=== PATIENT | male | born 1965 | race Caucasian/White ===

== ENCOUNTER 2016-05-07 23:53 | Inpatient (IN) | payer OTHER ==
--- NOTE | 2016-05-08 00:01 | CPEKG ---
Heart Rate: 143 RR Interval: 420 QRSD Interval: 122 QT Interval: 376 QTC Interval: 580 P [place]: 0 QRS [place]: 34 T Wave [place]: 21 EKG Severity - ABNORMAL ECG - EKG Impression: SINUS TACHYCARDIA EKG Impression: LEFT BUNDLE BRANCH BLOCK Electronically Signed By: Mello Phan 08-May-2016 08:26:37
[2016-05-08] MEDS ORDERED: IPRATROPIUM/ALBUTEROL 3 ML DEYVIAL IH ONE (00:11)
[2016-05-08] MEDS ORDERED: IPRATROPIUM/ALBUTEROL 3 ML DEYVIAL ONE (00:12)
--- NOTE | 2016-05-08 00:15 | EDPHY ---
H & P Stated Complaint: Difficulty Breathing Time Seen by Provider: 05/07/16 23:59 HPI/ROS: HPI The patient presents with shortness of breath which began a few hours ago while he was at work at the movie [employer]. He said he was exerting himself somewhat when he developed shortness of breath. It came on slowly but became worse after about 30 minutes. He has had a mild cough over the last days which is intermittent. He brought himself in. He has not had a fever or chills. He denies any lower extremity edema. In February he was diagnosed with iron deficiency anemia and is supposed to be on iron, though says he is not taking it. REVIEW OF SYSTEMS Constitutional: No fever, no chills. Eyes: No discharge. ENT: No sore throat. Cardiovascular: See HPI Respiratory: See HPI Gastrointestinal: No abdominal pain, no vomiting. Genitourinary: No hematuria. Musculoskeletal: No back pain. Skin: No rashes. Neurological: No headache. 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 PHYSICAL General Appearance: Alert, in acute respiratory distress Eyes: Pupils equal and round no pallor or injection ENT, Mouth: Mucous membranes moist Respiratory: Tachypneic with coarse breath sounds throughout Cardiovascular: Tachycardic with regular rate Gastrointestinal: Abdomen is soft and non-tender, no masses, bowel sounds normal Neurological: Paraplegic Skin: Warm and dry, no rashes Musculoskeletal: Neck is supple non tender Extremities: Atrophy of both lower extremities, Right lower extremity is cool, left lower extremity is warm Psychiatric: Patient is oriented X 3, there is no agitation Source: Patient Exam Limitations: No limitations, Clinical condition - Personal History Current Tetanus/Diphtheria Vaccine: Unsure Current Tetanus Diphtheria and Acellular Pertussis (TDAP): Unsure Tetanus Vaccine Date: UNSURE OF DATE THINKS IT WAS IN PAST TWO YEARS - Medical/Surgical History Hx Asthma: No Hx Chronic Respiratory Disease: No Hx Diabetes: No Hx Cardiac Disease: No Hx Renal Disease: No Hx Cirrhosis: No Hx Alcoholism: No Hx HIV/AIDS: No Hx Splenectomy or Spleen Trauma: No Other PMH: aorta repair; T12 spinal cord injury w/ paralasys; hernia repair; exploritory sx on R foot; kidney infection - Social History Smoking Status: Never smoked Constitutional: Initial Vital Signs Temperature (C) 37.7 C 05/07/16 23:56 Heart Rate 152 H 05/07/16 23:56 Respiratory Rate 14 05/07/16 23:56 Blood Pressure 134/92 H 05/07/16 23:56 O2 Sat (%) 89 L 05/07/16 23:56 O2 Delivery Mode Ventilator O2 (L/minute) 35 Allergies/Adverse Reactions: No Known Allergies Allergy (Unverified 08/01/10 15:23) Home Medications: Medication Instructions Recorded No Medications [No Meds] 1 ea [facility] [place] 08/01/10 Medical Decision Making - Diagnostics EKG Interpretation: EKG: Complete interpretation has been separately recorded in the [facility] archive. Summary impression: Left bundle branch block with tachycardia Imaging: Chest x-ray #1: Mild cardiomegaly with bilateral fluffy infiltrates, interpreted by me, radiology interpretation is pending. CT scan of chest abdomen and pelvis with IV contrast demonstrates stable ascending thoracic aortic aneurysm without dissection, aortic valve calcifications, extensive bilateral infiltrates with some intraluminal fluid in the esophagus, gastric distention with fluid, discussed with Dr. Liriano of Radiology. Chest x-ray #2: Interval placement of ET tube approximately 4 cm above the ted, interpreted by me, radiology interpretation is pending. Chest x-ray #3: Interval placement of right central line which appears to be in the distal SVC, interpreted by me, radiology interpretation is pending. Procedures: INTUBATION Procedure: Rapid sequence intubation. Indication for the procedure was respiratory failure. The patient was preoxygenated with 100% oxygen by face mask and high-flow nasal cannula. The patient was given the following IV medications: Etomidate, . The patient was orally endotracheally intubated using the glide scope with a 7.5 ETT. In line stabilization was performed during the procedure. Tracheal intubation was confirmed with misting on the tube; breath sounds were auscultated equally bilaterally; appropriate color change with [place] [employer]idal CO2 detector. Chest X-ray shows ETT 4 cm above the ted, thus it was pulled back 1 cm. The procedure was performed by myself. CENTRAL LINE WITH US GUIDANCE Procedure: Ultrasound guidance. Using the linear probe covered in a sterile sheath, a short axis of the vein was obtained. The vein was completely compressible and was identified as separate from the adjacent non-compressible arterial structure. Under real- time guidance, the introducer needle was observed up to the vein, and then punctured it. Indication: Need for pressors Risks, benefits, alternatives discussed with the patient including but not limited to bleeding, infection, vascular injury, and collapsed lung and consent obtained. A timeout was observed. Full maximal sterile barrier technique was used including cap, gown, sterile gloves, large sheet, hand washing and chlorhexidine prep. The area was anesthetized with 1% lidocaine. A 7 [place] triple lumen was placed in the right,left internal jugular vein using standard Seldinger technique. There were no complications. Blood return low pressure, dark blood. Patient tolerated procedure well. CXR results: Appropriate line placement, and no pneumothorax. Xray was interpreted by myself. Radiologist interpretation is pending. The procedure was performed by myself. ED Course/Re-evaluation: 12:00 a.m.- Initial evaluation. On 2 L of oxygen his sats were not improving. I have placed him on a non-rebreather with improvement in his oxygen saturations, though he is still tachypneic. 1:00 a.m.- We are now doing high flow humidified O2 and the patient is still feels tachypneic. His sats are normal. His chest x-ray shows diffuse patchy infiltrates bilaterally. He is getting antibiotics and a fluid bolus. I will try a dose of ketamine and will transition to BiPAP if needed. It is unclear if he has pneumonia versus ARDS versus heart failure. 2:15 a.m.- The patient transitioned to BiPAP with Ativan and was still short of breath and anxious. Decision was made to intubate the patient. CT scan demonstrates bilateral infiltrates though no dissection, pulmonary embolism. Differential at this time includes aspiration pneumonia verses acute congestive heart failure. 2:45 a.m.- Plan to place a central line as patient's pressures are dropping after intubation. Propofol drip is being titrated and we are transitioning to fentanyl. I discussed the case with the hospitalist Dr. Bansal. She will consult Cardiology, Dr. Collier. Based on patient's story, it seems that he is suffering from heart failure with pulmonary edema. His blood pressures were never elevated, thus nitro was not indicated and given his hypotension now we will need to support his blood pressure. The patient will be transferred to the intensive care unit. Differential Diagnosis: This is a 50-year-old male paraplegic with history of coarctation of the aorta who presents with acute shortness of breath with very mild chest discomfort. On arrival, he is tachycardic, hypoxic, in respiratory distress. He has been sick recently with a mild intermittent cough. Differential diagnosis includes pulmonary embolism, pneumothorax, acute decompensated heart failure, pneumonia, aortic dissection Critical Care Time: CRITICAL CARE Critical care time spent by me, Dr. Paredes, exclusively with this patient was 90 minutes, exclusive of PA time and exclusive of procedures. The organ system at risk was respiratory, cardiac and I gave IV fluids, antibiotics, pressors, intubation and central line, emergent transfer to the intensive care unit to prevent worsening of the patients condition. - Data Points Laboratory Results: Laboratory Results 05/08/16 00:00 05/08/16 00:00 05/08/16 05/08/16 05/08/16 03:35 02:35 01:43 WBC RBC Hgb Hct MCV MCH MCHC RDW Plt Count MPV Neut % (Auto) Lymph % (Auto) Johnston % (Auto) Eos % (Auto) Baso % (Auto) Nucleat RBC Rel Count Absolute Neuts (auto) Absolute Lymphs (auto) Absolute Monos (auto) Absolute Eos (auto) Absolute Basos (auto) Absolute Nucleated RBC Immature Gran % Immature Gran # Toxic Granulation Platelet Estimate Large Platelets Giant Platelets Polychromasia Hypochromasia Microcytic Cells Smear Review By D-Dimer Puncture Site LEFT RADIAL Patient Temperature 37.0 DEGREES DEGREES pCO2 41 mmHg H mmHg (34-38) pO2 65 mmHg mmHg (65-75) Total CO2 20 mEq/L L mEq/L (23-27) ABG pH 7.28 L (7.35-7.45) ABG PO2/FiO2 Ratio 65 RATIO RATIO ABG O2 Saturation 88 % L % (92-95) ABG Base Excess -7.3 mEq/L L mEq/L (-2.5-2.5) ABG Lactic Acid 2.5 mmol/L H mmol/L (0.5-1.6) VBG Lactic Acid Total O2 Concentration 35.0 LITERS LITERS O2 Concentration % 100 % % (0-100) Sodium Potassium Chloride Carbon Dioxide Bicarbonate 19 mEq/L L mEq/L (22-26) Anion Gap BUN Creatinine Estimated GFR Glucose Calcium Troponin I NT-Pro-B Natriuret Pep Influenza A & B (PCR) NEGATIVE FOR FLU (NEGATIVE) 05/08/16 05/08/16 05/08/16 01:28 00:00 00:00 WBC RBC Hgb Hct MCV MCH MCHC RDW Plt Count MPV Neut % (Auto) Lymph % (Auto) Johnston % (Auto) Eos % (Auto) Baso % (Auto) Nucleat RBC Rel Count Absolute Neuts (auto) Absolute Lymphs (auto) Absolute Monos (auto) Absolute Eos (auto) Absolute Basos (auto) Absolute Nucleated RBC Immature Gran % Immature Gran # Toxic Granulation Platelet Estimate Large Platelets Giant Platelets Polychromasia Hypochromasia Microcytic Cells Smear Review By D-Dimer 1.16 ug/mLFEU H ug/mLFEU (0.00-0.50) Puncture Site Patient Temperature pCO2 pO2 Total CO2 ABG pH ABG PO2/FiO2 Ratio ABG O2 Saturation ABG Base Excess ABG Lactic Acid VBG Lactic Acid 2.8 mmol/L H mmol/L (0.7-2.1) Total O2 Concentration O2 Concentration % Sodium Potassium Chloride Carbon Dioxide Bicarbonate Anion Gap BUN Creatinine Estimated GFR Glucose Calcium Troponin I NT-Pro-B Natriuret Pep 1770 pg/mL H pg/mL (0-125) Influenza A & B (PCR) 05/08/16 05/08/16 05/08/16 00:00 00:00 00:00 WBC 27.93 10^3/uL H 10^3/uL (3.80-9.50) RBC 5.85 10^6/uL 10^6/uL (4.40-6.38) Hgb 10.6 g/dL L g/dL (13.7-17.5) Hct 38.6 % L % (40.0-51.0) MCV 66.0 fL L fL (81.5-99.8) MCH 18.1 pg L pg (27.9-34.1) MCHC 27.5 g/dL L g/dL (32.4-36.7) RDW 25.4 % H % (11.5-15.2) Plt Count 408 10^3/uL H 10^3/uL (150-400) MPV TNP Neut % (Auto) 90.8 % H % (39.3-74.2) Lymph % (Auto) 2.5 % L % (15.0-45.0) Johnston % (Auto) 5.4 % % (4.5-13.0) Eos % (Auto) 0.1 % L % (0.6-7.6) Baso % (Auto) 0.4 % % (0.3-1.7) Nucleat RBC Rel Count 0.1 % % (0.0-0.2) Absolute Neuts (auto) 25.35 10^3/uL H 10^3/uL (1.70-6.50) Absolute Lymphs (auto) 0.71 10^3/uL L 10^3/uL (1.00-3.00) Absolute Monos (auto) 1.50 10^3/uL H 10^3/uL (0.30-0.80) Absolute Eos (auto) 0.04 10^3/uL 10^3/uL (0.03-0.40) Absolute Basos (auto) 0.11 10^3/uL H 10^3/uL (0.02-0.10) Absolute Nucleated RBC 0.03 10^3/uL H 10^3/uL (0-0.01) Immature Gran % 0.8 % % (0.0-1.1) Immature Gran # 0.22 10^3/uL H 10^3/uL (0.00-0.10) Toxic Granulation PRESENT H Platelet Estimate INCREASED H (ADEQ) Large Platelets PRESENT H Giant Platelets PRESENT H Polychromasia 1+ H Hypochromasia 2+ H Microcytic Cells 2+ H Smear Review By Pending D-Dimer Puncture Site Patient Temperature pCO2 pO2 Total CO2 ABG pH ABG PO2/FiO2 Ratio ABG O2 Saturation ABG Base Excess ABG Lactic Acid VBG Lactic Acid 2.4 mmol/L H mmol/L (0.7-2.1) Total O2 Concentration O2 Concentration % Sodium 141 mEq/L mEq/L (134-144) Potassium 4.5 mEq/L mEq/L (3.5-5.2) Chloride 106 mEq/L mEq/L (97-110) Carbon Dioxide 19 mEq/l L mEq/l (22-31) Bicarbonate Anion Gap 16 mEq/L mEq/L (8-16) BUN 18 mg/dL mg/dL (7-23) Creatinine 0.7 mg/dL mg/dL (0.7-1.3) Estimated GFR > 60 Glucose 132 mg/dL H mg/dL (70-100) Calcium 9.6 mg/dL mg/dL (8.5-10.4) Troponin I 0.045 ng/mL H ng/mL (0-0.034) NT-Pro-B Natriuret Pep Influenza A & B (PCR) Medications Given: Discontinued Medications Albuterol/Ipratropium (Duoneb) 3 ml IH EDNOW ONE Stop: 05/08/16 00:12 Last Admin: 05/08/16 00:16 Dose: 3 ml Furosemide (Lasix Injection) 40 mg IVP ONCE ONE Stop: 05/08/16 03:16 Last Admin: 05/08/16 03:38 Dose: 40 mg Vancomycin/Sodium Chloride (Vancomycin 1 Gm (Premix)) 250 mls @ 250 mls/hr IV EDNOW ONE PRN Reason: Protocol Stop: 05/08/16 01:47 Last Admin: 05/08/16 01:45 Dose: 250 mls Sodium Chloride (Ns) 1,000 mls @ 0 mls/hr IV ONCE ONE PRN Reason: Wide Open Stop: 05/08/16 01:03 Last Admin: 05/08/16 00:30 Dose: 1,000 mls Clindamycin Phosphate/Dextrose (Cleocin 600 Mg (Premix)) 50 mls @ 100 mls/hr IV EDNOW ONE PRN Reason: Protocol Stop: 05/08/16 02:33 Last Admin: 05/08/16 04:41 Dose: 50 mls Norepinephrine 4 mg/ Dextrose 500 mls @ 0 mls/hr IV EDNOW ONE; Titrate PRN Reason: Protocol Stop: 05/08/16 03:01 Last Admin: 05/08/16 03:05 Dose: 500 mls Ketamine HCl (Ketamine) 15 mg IVP EDNOW ONE Stop: 05/08/16 01:00 Last Admin: 05/08/16 01:20 Dose: 15 mg Lorazepam (Ativan Injection) 0.5 mg IVP EDNOW ONE Stop: 05/08/16 01:56 Last Admin: 05/08/16 02:00 Dose: 0.5 mg Departure - Departure Disposition: [facility] Clinical Impression: Respiratory distress, Hypoxia, Tachycardia, Aorta coarctation Acute exacerbation of congestive heart failure Qualifiers: Congestive heart failure type: unspecified congestive heart failure type Qualified Code(s): I50.9 - Heart failure, unspecified Pulmonary edema Qualifiers: Chronicity: acute Qualified Code(s): J81.0 - Acute pulmonary edema Condition: Fair Referrals: Patient,NotPresent [Unknown] - As per Instructions
[2016-05-08 00:23] LABS: % IMMATURE GRANULYOCYTES 0.8 % (0.0-1.1); ABSOLUTE IMMATURE GRANULOCYTES 0.22 10^3/uL (0.00-0.10); ABSOLUTE NRBC COUNT 0.03 10^3/uL (0-0.01); ADD DIFF? NO; ADD MORPH? YES; ADD SCAN? NO; ATYPICAL LYMPHOCYTE FLAG 0 (0-99); FRAGMENT RBC FLAG 80 (0-99); HEMATOCRIT 38.6 % (40.0-51.0); HEMOGLOBIN 10.6 g/dL (13.7-17.5); LEFT SHIFT FLG 0 (0-99); LIPEMIA HEMOLYSIS FLAG 70 (0-99); MEAN CELL HEMOGLOBIN 18.1 pg (27.9-34.1); NRBC-AUTO% 0.1 % (0.0-0.2); PLATELET CLUMPS FLAG 10 (0-99); PLATELET COUNT 408 10^3/uL (150-400); RED BLOOD CELL COUNT 5.85 10^6/uL (4.40-6.38)
[2016-05-08 00:25] LABS: MEAN CELL HEMOGLOBIN CONCENTR. 27.5 g/dL (32.4-36.7); RED CELL DISTRIBUTION WIDTH 25.4 % (11.5-15.2)
[2016-05-08 00:30] LABS: ANION GAP 16 mEq/L (8-16); CALCIUM 9.6 mg/dL (8.5-10.4); CARBON DIOXIDE 19 mEq/l (22-31); CHLORIDE 106 mEq/L (97-110); CREATININE 0.7 mg/dL (0.7-1.3); GLOMERULAR FILTRATION RATE > 60; GLUCOSE 132 mg/dL (70-100); POTASSIUM 4.5 mEq/L (3.5-5.2); SODIUM 141 mEq/L (134-144)
[2016-05-08 00:41] LABS: TROPONIN I 0.045 ng/mL (0-0.034)
[2016-05-08] MEDS ORDERED: VANCOMYCIN HCL/NORMAL SALINE 250 ML IV ONE (00:48)
[2016-05-08] MEDS ORDERED: IOPAMIDOL (ISOVUE 370) 100 ML BTL IV ONE (00:52)
[2016-05-08 00:58] LABS: GIANT PLATELETS PRESENT; HYPOCHROMIA 2+; LARGE PLATELETS PRESENT; MICROCYTES 2+; POLYCHROMASIA 1+; TOXIC GRANULATION PRESENT
[2016-05-08 00:59] LABS: PLATELET ESTIMATE INCREASED (ADEQ)
[2016-05-08] MEDS ORDERED: KETAMINE 100 MG/10 ML SYR IVP ONE (00:59)
[2016-05-08] MEDS ORDERED: NS 1,000 ML IV ONE (01:02)
[2016-05-08] MEDS ORDERED: ONDANSETRON 4 MG/2 ML VIAL ONE (01:22)
[2016-05-08] MEDS ORDERED: ALBUTEROL 3 ML DEYVIAL ONE (01:43)
[2016-05-08] MEDS ORDERED: LORazepam 2 MG/ML INJ ONE ×2 (01:48→02:01)
[2016-05-08 01:50] LABS: BASE EXCESS -7.3 mEq/L (-2.5-2.5); BICARBONATE 19 mEq/L (22-26); MEASURED OXYGEN SATURATION 88 % (92-95); PCO2 41 mmHg (34-38); PO2 65 mmHg (65-75); TCO2 20 mEq/L (23-27)
[2016-05-08 01:53] LABS: O2 CONCENTRATIION 100 % (0-100); P/F RATIO 65 RATIO
[2016-05-08] MEDS ORDERED: LORazepam 2 MG/ML INJ IVP ONE (01:55)
[2016-05-08] MEDS ORDERED: ETOMIDATE 40 MG/20 ML INJ ONE (02:05)
[2016-05-08] MEDS ORDERED: SUCCINYLCHOLINE CHLORIDE*ANESTHESIA ONLY*200 MG/10 ML SYR IVP ONE (02:05)
[2016-05-08] MEDS ORDERED: PHENYLEPHRINE HCL 100 MCG/ML SYR ONE (02:09)
[2016-05-08] MEDS ORDERED: PROPOFOL/EMULSION 1,000 MG/100 ML BOTTLE IV ONE (02:11)
[2016-05-08] MEDS ORDERED: ACETAMINOPHEN 325 MG TAB PO PRN (02:13)
[2016-05-08] MEDS ORDERED: ONDANSETRON DISINTEGRATING 4 MG TAB PO PRN (02:13)
[2016-05-08] MEDS ORDERED: ONDANSETRON 4 MG/2 ML VIAL IVP PRN (02:13)
[2016-05-08] MEDS: PROPOFOL/EMULSION 100 ML IV SCH ×2 (02:15→07:55)
[2016-05-08] MEDS: fentaNYL/NACL 100 ML IV SCH ×2 (02:20→07:56)
[2016-05-08] MEDS ORDERED: fentaNYL 100 MCG/2 ML INJ ONE (02:35)
[2016-05-08] MEDS ORDERED: NOREPINEPHRINE BITARTRATE 4 MG in NS 500 ML IV ONE (02:56)
[2016-05-08] MEDS ORDERED: NOREPINEPHRINE BITARTRATE 4 MG in D5W 500 ML IV ONE (03:00)
[2016-05-08] MEDS ORDERED: FUROSEMIDE 40 MG/4 ML VIAL IVP ONE (03:15)
[2016-05-08] MEDS ORDERED: VASOPRESSIN/DEXTROSE 250 ML IV SCH ×2 (03:20→04:21)
[2016-05-08] MEDS ORDERED: FUROSEMIDE 20 MG/2 ML VIAL ONE (03:29)
[2016-05-08] MEDS: CLINDAMYCIN 600 MG/DEXTROSE 50 ML IV ONE ×2 (04:05→04:41)
[2016-05-08] MEDS: PHENYLEPHRINE HCL 50 MG in D5W 250 ML IV SCH ×3 (04:44→12:34)
[2016-05-08] MEDS ORDERED: ACETAMINOPHEN 650 MG SUPP PR PRN (04:56)
--- NOTE | 2016-05-08 05:04 | GHP ---
[f rep st] HISTORY AND PHYSICAL DATE OF ADMISSION: 05/08/2016 CHIEF COMPLAINT: Cardiogenic shock. 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 He also has a bicuspid aortic valve, ascending aortic aneurysm 5.1 cm, moderate aortic stenosis, and systolic heart failure, EF 35% to 40%. The patient was in his normal state of health this morning per his mother. She states that they had breakfast today and he was fine. At that time, he had no complaints, and she said that he looked good. He then went to work without issue but then called his [employer] intelligence support on his way home to [place] complaining of shortness of breath. The patient became very anxious, thus his [employer] ia[employer] support brought him to the hospital. In the emergency room, the patient was initially hypoxic to the 80s on 2 L. Had increased oxygen needs warranting BiPAP. He was not responding and thus was intubated. Chest x-ray with diffuse bilateral edema. Per physician, it was noted that he had frothy pink sputum during intubation. The patient was admitted a couple months ago at [facility] with dyspnea, and he was found to be anemic with a hematocrit of 29. The patient underwent EGD and colonoscopy that were unrevealing. He underwent a recent capsule endoscopy and awaiting results. The patient was last seen by Dr. Collazo on March 23, 2016, and he was very concerned about the status of his heart. Echo and MUGA scan indicated decline in his EF. 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 The plan was for more definitive assessment with a right and left heart catheterization. REVIEW OF SYSTEMS: I obtained most of the history from Pastor Arredondo and his mother as patient is intubated and sedated. PAST MEDICAL HISTORY: 1. Congenital coarctation of aorta, repaired in 1970 and revision 1982. Bicuspid aortic valve. 2. Moderate to severe aortic regurgitation. 3. Anemia with recent negative EGD and colonoscopy. Capsule endoscopy is pending. 4. Paraplegia secondary to a complication in his second cardiac surgery. 5. Hypertension. 6. Aortic aneurysm. 7. Hemorrhoids. PAST SURGICAL HISTORY: Repair of aorta x2. FAMILY HISTORY: Grandfather with an GA. SOCIAL HISTORY: Lives in [place] with some roommates. Per mother, they have sprayed his home the last week for bed bugs. He does not smoke, drink or do drugs. He works at [employer]. Father is a Technical Service Rep ALLERGIES: No known drug allergies. MEDICATIONS: Toprol 25 mg XL. PHYSICAL EXAM: VITAL SIGNS: Temperature 37.7, blood pressure initially was systolic 70s, now 134/92 on Levophed, heart rate 90s to 150s, respirations 14. Patient is now vented on FiO2 40%. GENERAL: Patient is sedated. HEENT: Intubated. CV: Regular, tachy. S3. +1 pedal edema. LUNGS: Diffuse crackles bilaterally. ABDOMEN: Obese, soft, nondistended, nontender. No grimace with palpation. SKIN: hands cool to touch. Mild erythema over left boswell. NEURO: Patient sedated. PSYCH: Patient sedated. LABS: WBC is 27, hemoglobin is 10, hematocrit 38, MCV 68, platelets 408. D- dimer is 1.16. Lactate is 2.8. BG: PH 7.2, CO2 of 41, PO2 of 65. Sodium 141, potassium 4.5, chloride 106, carbon dioxide 19, BUN 18, creatinine 0.7, anion gap 16, glucose 132, calcium 9.6. Troponin 0.045. BNP is 1770. Chest x-ray was personally reviewed by me. Diffuse bilateral pulmonary edema. EKG personally reviewed by me. Left bundle branch block. Sinus tachycardia. No old to compare to. Abdominal CT: Results pending. ASSESSMENT AND PLAN: 1. Cardiogenic shock: pt with acute clinical decline in the ER. Given history of mod-severe AI, there is concern of progression. Diuresing. Now requiring pressors; will stop Levophed due to tachycardia and change to Phenylepherine/ Vasopressin. Appreciate Dr. Jerome's consultation. Stat echo pending. Balloon pump contraindicated. Dr. Collier contacting CT surgery for possible LVAD. 2. Leukocytosis: WBC 27. Now fevering. Per gw[employer] ia[employer] intelligence support and mother, no infectious symptoms. UA and blood cultures pending. Influenza negative. Given critical state, will cover for CAP with CTX and Azithromycin. 3. Benign hypertension: holding beta-karlos. 4. Paraplegia: Secondary to complication with his cardiac surgery in the past. 5. History of anemia: recently hospitalized at [place] for anemia. Has had hemorrhoids in the past. He had an EGD/colonoscopy there that were negative. Recently underwent capsule endoscopy and results pending. Hematocrit then was 29; H/H here today. Will trend these. 6. Acute hypoxemic respiratory failure: due to volume overload; intubated in the ER. Dosed Lasix 40mg. 7. Diet: N.p.o. 8. Deep venous thrombosis prophylaxis: SCDs given recent concern for blood- loss anemia. 9. Disposition: Patient warrants admission to the ICU given acute hypoxemic respiratory and cardiogenic shock. /[id number]/MODL MTDD
--- NOTE | 2016-05-08 05:12 | ECHO ---
[id number] + + [address] : : [place] [address] : : [phone] + Adult Echocardiographic Report + -------+ :Name: OLIMPIA HAJIdixiealia Date: 05/08/2016 03:51 AM : : Hospital Admission Number: [id number] Locati on: ER1: :: 1965 Gender: Male Height: 69 in : :Age: 50 yrs Race: WH Weight: 220 lb : :Reason For Study: Eval LV Fx : : BSA: 2.2 meter s2 : :History: Hypoxia, Intubated : + -------+ MMode/2D Measurements \T\ Calculations IVSd: 1.1 cm LVIDd: 6.1 cm FS: 8.3 % Ao root diam: LVPWd: 1.3 cm LVIDs: 5.6 cm EDV(Teich): 2.9 cm 183.8 ml ESV(Teich): 150.7 ml EF(Teich): 18.0 % LVLd ap4: 9.5 cm SV(MOD-sp4): EDV(MOD-sp4): 39.0 ml 223.0 ml LVLs ap4: 9.6 cm ESV(MOD-sp4): 184.0 ml EF(MOD-sp4): 17.5 % Normal Measurement Values: + + :LVIDd (3.5-5.7cm) IVSd (0.6-1.1cm) LVPWd (0.6-1.1cm) Aortic Root (2.0-3.7cm)Left Atrium (1.5-4.0cm): :LV Vol(d) (76-115ml) LV Vol(s) (29-48ml) Ejec Fraction (50-65%)PV Luis E (0.6- 1.2m/s) TV Luis E (0.4-1.0m/s) : :MV E Luis E (0.8-1.0m/s)MV A Luis E (0.3-1.0m/s)LVOT Luis E (0.7-1.2m/s) Asc Ao Luis E ( 0.9-1.8m/s) : + + Doppler Measurements \T\ Calculations MV E max luis e: Ao V2 max: LV V1 max: PA V2 max: 54.3 cm/sec 425.0 cm/sec 91.7 cm/sec 119.0 cm/sec Ao max PG: LV V1 max PG: PA max P.4 mmHg 3.4 mmHg 5.7 mmHg Ao mean PG: LV V1 mean P.0 mmHg 2.0 mmHg Ao V2 mean: LV V1 mean: 325.0 cm/sec 63.7 cm/sec Ao V2 VTI: 66.7 cm LV V1 VTI: 16.6 cm Left Ventricle The left ventricle is moderately dilated. There is normal left ventricular wall thickness. Left ventricular systolic function is severely reduced. Ejection Fraction = 15-20%. Tachycardia at 160 BPM. Right Ventricle The right ventricle is normal in size and function. Atria The left atrium is mildly dilated. Right atrial size is normal. Mitral Valve The mitral valve is normal. There is no mitral valve stenosis. There is no mitral regurgitation noted. Tricuspid Valve There is trace tricuspid regurgitation. Right ventricular systolic pressure is normal. RVSP most likely underestimated due to tachycardia and intubation. Aortic Valve A bicuspid aortic valve cannot be excluded. The Ao Vmax is 4.4cm/s with a Ao mean PG of 52 mmHg. Severe valvular aortic stenosis. Pulmonic Valve The pulmonic valve is normal in structure and function. There is no pulmonic valvular regurgitation. Great Vessels The aortic root is normal size. Pericardium/Pleural There is no pericardial effusion. Conclusion A complete two-dimensional transthoracic echocardiogram was performed (2D, M-mode, Doppler and color flow Doppler). Rhythm is sinus tachycardia at 160 BPM. The left ventricle is moderately dilated. There is normal left ventricular wall thickness. Left ventricular systolic function is severely reduced. Ejection Fraction = 15-20%. Global hypokinesis. Cannot rule out LV apical thrombus. The left atrium is mildly dilated. Known bicuspid aortic valve. Severe aortic stenosis. The Ao Vmax is 4.4cm/s with a Ao mean PG of 52 mmHg. The mitral valve is normal. There is trace tricuspid regurgitation. Right ventricular systolic pressure is normal. RVSP most likely underestimated due to tachycardia. There is no pericardial effusion. Final Reading Physician: Aidan Monroe signed on 05/08/2016 05:11 AM Ordering Physician: Dona Bansal Performed By: Sedrick Sarabia, CS
[2016-05-08 05:52] LABS: ADD DIFF? YES; ATYPICAL LYMPHOCYTE FLAG 0 (0-99); FRAGMENT RBC FLAG 80 (0-99); HEMATOCRIT 37.5 % (40.0-51.0); LEFT SHIFT FLG 20 (0-99); LIPEMIA HEMOLYSIS FLAG 70 (0-99); MEAN CELL HEMOGLOBIN 18.3 pg (27.9-34.1); NRBC-AUTO% 0.5 % (0.0-0.2); PLATELET CLUMPS FLAG 20 (0-99); PLATELET COUNT 414 10^3/uL (150-400); RED BLOOD CELL COUNT 5.47 10^6/uL (4.40-6.38)
[2016-05-08 05:58] LABS: ADD MORPH? NO; ADD SCAN? NO; MEAN CELL HEMOGLOBIN CONCENTR. 26.7 g/dL (32.4-36.7); MEAN CELL VOLUME 68.6 fL (81.5-99.8); RED CELL DISTRIBUTION WIDTH 25.8 % (11.5-15.2)
[2016-05-08 06:05] LABS: COLOR PALE YELLOW; LEUKOCYTE ESTERASE,URINE NEGATIVE (NEGATIVE); NITRITE,URINE NEGATIVE (NEGATIVE)
[2016-05-08 06:07] LABS: BACTERIA TRACE /hpf (NONE SEEN)
[2016-05-08 06:13] LABS: ALANINE AMINOTRANSFERASE 28 IU/L (21-72); ALBUMIN 3.3 g/dL (3.5-5.0); ALKALINE PHOSPHATASE 49 IU/L (38-126); ANION GAP 10 mEq/L (8-16); ASPARTATE AMINOTRANSFERASE 41 IU/L (17-59); BILIRUBIN,TOTAL 0.7 mg/dL (0.1-1.4); CALCIUM 7.8 mg/dL (8.5-10.4); CARBON DIOXIDE 19 mEq/l (22-31); CHLORIDE 109 mEq/L (97-110); CREATININE 0.8 mg/dL (0.7-1.3); GLOMERULAR FILTRATION RATE > 60; GLUCOSE 134 mg/dL (70-100); POTASSIUM 4.5 mEq/L (3.5-5.2); SODIUM 138 mEq/L (134-144); TOTAL PROTEIN 6.5 g/dL (6.3-8.2)
[2016-05-08 06:13] LABS: ASSIST CONTROL YES; END TIDAL CO2 34; O2 CONCENTRATIION 100 % (0-100); TOTAL RATE 24
[2016-05-08 06:16] LABS: TROPONIN I 0.425 ng/mL (0-0.034)
[2016-05-08 06:16] LABS: BASE EXCESS -8.8 mEq/L (-2.5-2.5); BICARBONATE 18 mEq/L (22-26); MEASURED OXYGEN SATURATION 89 % (92-95); P/F RATIO 79 RATIO; PCO2 53 mmHg (34-38); PO2 79 mmHg (65-75); TCO2 20 mEq/L (23-27)
[2016-05-08] MEDS: NOREPINEPHRINE BITARTRATE 4 MG in D5W 500 ML IV SCH ×3 (06:16→12:35)
--- NOTE | 2016-05-08 06:19 | CPEKG ---
Heart Rate: 112 RR Interval: 536 P-R Interval: 168 QRSD Interval: 128 QT Interval: 360 QTC Interval: 492 P [place]: 6 QRS [place]: 46 T Wave [place]: 201 EKG Severity - ABNORMAL ECG - EKG Impression: SINUS TACHYCARDIA EKG Impression: LEFT BUNDLE BRANCH BLOCK Electronically Signed By: Mello Phan 08-May-2016 08:26:09
[2016-05-08 06:26] LABS: GIANT PLATELETS PRESENT
[2016-05-08 06:28] LABS: TOXIC VACUOLIZATION PRESENT
[2016-05-08 06:29] LABS: HYPOCHROMIA 2+
[2016-05-08 06:31] LABS: TOXIC GRANULATION PRESENT
[2016-05-08 06:32] LABS: PLATELET ESTIMATE INCREASED (ADEQ)
[2016-05-08 06:33] LABS: ELLIPTOCYTES 1+; LARGE PLATELETS PRESENT; MICROCYTES 2+; POLYCHROMASIA 1+
[2016-05-08] MEDS ORDERED: SODIUM BICARBONATE 50 MEQ/50 ML SYR ONE (07:06)
[2016-05-08 07:10] LABS: INR 1.36 (0.83-1.16); PROTIME(PATIENT) 16.8 SEC (12.0-15.0)
[2016-05-08 07:11] LABS: APTT 32.6 SEC (23.0-38.0)
--- NOTE | 2016-05-08 07:29 | GCON ---
[f rep st] CONSULTATION CARDIOLOGY CONSULTATION REASON FOR CONSULTATION: 1. Bicuspid aortic valve. 2. Thoracic aortic aneurysm. 3. Cardiogenic shock. 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 He underwent initial surgery for his coarctation at age 5 and a 2nd operation at age 16 which produced paraplegia. He is usually followed by my partner, Dr. Collazo. He has a known thoracic aortic aneurysm with a maximum dimension of 5.1 cm which has been stable for a few years. He also has a history of combined aortic stenosis and regurgitation. Previous reports have graded his aortic regurgitation as at least moderate. His aortic stenosis has also been graded as at least moderate, with an echocardiogram from September of 2015 demonstrating a peak/mean gradient of 60/37 mmHg. He was last seen by Dr. Collazo in February of this year. Noninvasive testing had suggested a reduction in his ejection fraction. A MUGA scan performed in December of 2015 demonstrated an ejection fraction of 45%. He has moderate left ventricular dilatation. In February, Dr. Collazo expressed concerns that the patient was nearing time for replacement of his aortic valve and repair of his thoracic aortic aneurysm. The patient was relatively asymptomatic. The plan was to move forward with cardiac catheterization and referral for surgery. His cardiac catheterization is actually scheduled for next month.The patient presented to the emergency room at [facility] late in the evening of May 07. Earlier that day the patient had gone to breakfast with his mother. She reports that he seemed completely fine and in no distress whatsoever. 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 The patient's mother then received a phone call at approximately 3 a.m. from the hospitalist service that her son was in the emergency room and was in acute CHF/cardiogenic shock and had been intubated. When the patient's mother checked her phone, she saw that she had received a text from him at approximately 1:15 a.m. informing her that he had called his rastafarian senior db2 systems programmer to bring him to the emergency room because he was having trouble breathing.On arrival to the emergency room his blood pressure was 134/92 mmHg with a heart rate of 152 bpm. His O2 saturation was 89% on room air. His chest x-ray demonstrated pulmonary edema. Because of progressive respiratory distress, the patient was intubated. He developed hypotension requiring initiation of intravenous pressor support in the form of Levophed. His systolic pressure had been in the 70s, but then increased into the low 100s. However, he continued to have issues with what appeared to be sinus tachycardia, with his known underlying left bundle branch block. He was given a dose of intravenous Lasix. PAST MEDICAL HISTORY: In addition to his paraplegia and the cardiac issues mentioned above, he has a history of anemia, cellulitis, hypertension, hyperlipidemia, a thyroid nodule, and urinary tract infections. MEDICATIONS: His only medications are Toprol-XL 50 mg daily and an iron supplement. ALLERGIES: No known drug allergies. SOCIAL HISTORY: He is single. He has no children. He works at a local [employer] theater. He has never been a smoker. Alcohol consumption is social and only rarely. REVIEW OF SYSTEMS: Unobtainable, given the patient's current clinical status. PHYSICAL EXAMINATION: VITAL SIGNS: Heart rate in the 130s with a regular wide- complex rhythm on the monitor. Blood pressure 98/69. GENERAL: This is an obese, middle-aged male, who is currently intubated and sedated. HEAD AND NECK : No scleral icterus. Mucous membranes moist. Carotid pulses 2+ without bruits. CHEST: Lung garcia clear anteriorly: CARDIAC: Tachycardic regular rhythm, with systolic murmur. ABDOMEN: Obese, soft, nondistended, without masses. Normal bowel sounds. EXTREMITIES: 1+ peripheral pulses. No peripheral edema. LABORATORY STUDIES: Sodium 141, potassium 4.5, BUN and creatinine 18 and 0.7. His NT proBNP is 1770. His initial troponin is 0.045. CBC demonstrates a white blood cell count of 27.93 with hemoglobin and hematocrit of 38.6. Platelet count 408,000. His initial blood gas demonstrates a pH of 7.28 with PO2 of 65 and pCO2 of 41. His initial lactate was 2.4. ECG: His initial ECG demonstrates probable sinus tachycardia at 143 bpm, with a left bundle branch block. He has a known left bundle branch block. Echocardiogram: Please refer to the formal echocardiography report. Briefly, this study demonstrates a moderately dilated LV with severely reduced systolic function. LVEF is 15% to 20%, with global hypokinesis. He has a moderately calcified bicuspid aortic valve with significant aortic stenosis. His mean transaortic gradient is 52 mmHg. There is no evidence of a vegetation on the aortic valve. His other valves are normal in appearance. Although he is reported to have moderate to severe aortic regurgitation, this is not demonstrated on the current study, likely secondary to his tachycardia. On some images, there is a suggestion of a possible left ventricular apical thrombus. IMPRESSION / PROBLEM LIST: 1. Bicuspid aortic valve with mixed stenosis and regurgitation. 2. Thoracic aortic aneurysm measuring 5.0 x 5.[address] 3. Cardiomyopathy: Probable nonischemic etiology. LVEF was 45% by MUGA in December 2015, and is 15% to 20% on his current study. 4. Tachycardia: This appears to be sinus tachycardia rather than atrial fibrillation or flutter. Because of gradual increases and decreases in his heart rate, I do not think this represents a reentrant SVT. 5. Cardiogenic shock with hypotension and acidosis. 6. History of anemia. The patient is critically ill at this time. His chest x-ray demonstrates diffuse pulmonary edema and cardiomegaly. He is requiring intravenous pressor support. However, I have concerns that his Levophed drip may be worsening his tachycardia. There is no evidence for an acute ischemic event. There is no evidence for aortic dissection. That was my initial concern when I was contacted by the emergency room. Certainly, a dissection with compromise of his aortic valve structure could have caused a precipitous decline in his clinical status. Usually for his constellation of cardiac problems we would not expect to see such a sudden, catastrophic presentation without a significant new event. If his tachycardia represents some abnormal tachyarrhythmia, that could serve as an explanation. However, I do think that this is a sinus mechanism. PLAN: The patient has been transported to the intensive care unit. We will work on transitioning him from Levophed to Federico-Synephrine intravenously, and potentially adding vasopressin to support his blood pressure while minimizing enhancement of his tachycardia. He will continue to receive intravenous Lasix for diuresis. He is not a candidate for a balloon pump or Impella for hemodynamic support. I have a call out to the CT surgery service to get an opinion about whether left ventricular mechanical support might be considered. I had a long conversation with the patient's mother about his critical clinical situation and the risk for significant morbidity and mortality. /[id number]/MODL and [id number]/MODL. MTDD
[2016-05-08] MEDS ORDERED: NA BICARBONATE 50 MEQ/50 ML VIAL IV ONE (07:30)
[2016-05-08] MEDS ORDERED: VECURONIUM BROMIDE 50 MG in D5W 50 ML IV SCH (08:06)
[2016-05-08] MEDS ORDERED: LIDOCAINE 2% JELLY 5 ML TUBE TP ONE (08:26)
[2016-05-08] MEDS ORDERED: BENZOCAINE UNIT DOSE SPRAY HURRICAINE MM ONE (08:26)
[2016-05-08] MEDS ORDERED: LIDOCAINE 1% 30 ML SDV MISC ONE (08:26)
--- NOTE | 2016-05-08 08:34 | GCON ---
[f rep st] CONSULTATION INTENSIVE CARE CONSULTATION REASON FOR ADMISSION: Respiratory failure, cardiogenic shock. HISTORY OF PRESENT ILLNESS: The patient is a 50-year-old white male with extensive past medical his tory including paraplegia, congenital coarctation of the aorta repaired in 1970, revised in 1982. Cris villalpando has a bicuspid aortic valve with severe aortic regurgitation, hypertension. He presented to the e mergency room with market breathlessness. He felt fine earlier in the day and then began becoming p rogressively more short of breath. He was seen in the emergency room, was markedly hypoxemic, and w as subsequently intubated, placed on mechanical ventilation. He is currently in the intensive care unit on multiple pressors, on mechanical ventilation. All history is gleaned from the medical recor d. PAST MEDICAL HISTORY: Significant for aortic aneurysm, congenital coarctation of the aortic, bicusp id aortic valve, aortic regurgitation, anemia, paraplegia, hypertension. PAST SURGICAL HISTORY: Repair of the aorta x2. ALLERGIES: No known allergies to medications. SOCIAL HISTORY: No history of tobacco use. No history of alcohol use. MEDICATIONS: He is on Toprol. PHYSICAL EXAM: VITAL SIGNS: Blood pressure is 106/66, pulse is 130, respirations 28, temperature 3 9.1, oxygen saturation 92% on mechanical ventilation. GENERAL: He is a mildly overweight 50-year-o ld white male who is sedated, on mechanical ventilation, on multiple pressors. HEENT: Eyes are PER RLA, EOMI. Throat: Endotracheal tube is in good position. NECK: Supple. No cervical adenopathy. HEART: Regular rate and rhythm with a 3/6 systolic murmur left sternal border without radiation. LUNGS: Diminished breath sounds. Increased crackles throughout both lungs. ABDOMEN: Soft, nonte nder. Bowel sounds present in all 4 quadrants. EXTREMITIES: Show trace lower extremity edema. LABORATORIES: White count 41,000, hemoglobin 10, hematocrit 37, platelet count 417. INR is 1.36. Sodium is 138, potassium 4.5, chloride 109, CO2 is 19, BUN is 18, creatinine 0.8, glucose is 134. T roponins are positive 0.425. BNP is elevated at 1770. Urinalysis is negative. Influenza A and B a re negative. Arterial blood gas: pH is 7.18, pCO2 of 53, pO2 of 79, bicarb 20, oxygen saturation i s 89%. This is on assist control 24, tidal volume 550, +10 of PEEP. Echocardiogram shows a severel y compromised ejection fraction of approximately 15% to 20%. AOV max is 4.4 cm/second with an AO me an PG of 52 mmHg. Chest x-ray shows cardiomegaly, severe pulmonary edema. IMPRESSION: 1. Cardiogenic shock, on multiple pressors. 2. Severe aortic regurgitation. 3. Respiratory failure. 4. Pulmonary edema secondary to above. 5. Paraplegia. 6. Fever with elevated white count. Must take into consideration possible infection, likely lung. 7. History of hypertension. 8. History of congenital coarctation of the aorta. RECOMMENDATIONS: 1. Continue mechanical ventilation for now. The patient is approaching maximum ventilator support. 2. We will paralyze patient to control his ventilatory status. 3. We will discuss case with Cardiology. 4. Continue current pressors. 5. Continue current broad-spectrum antibiotics. 6. We will consider fiberoptic bronchoscopy. 7. DVT and PE prophylaxis. 8. Stress ulcer prophylaxis. Prognosis is guarded. Case has been discussed with the family as well as Nursing and RT. /[id number]/MODL
[2016-05-08] MEDS ORDERED: AZITHROMYCIN IV 500 MG in D5W 250 ML IV SCH (09:00)
[2016-05-08] MEDS ORDERED: ENOXAPARIN 40 MG/0.4 ML SYR SC SCH (09:00)
--- NOTE | 2016-05-08 09:11 | PDCARPN ---
Cardiology Progress Note Chief Complaint: Cardiogenic shock Assessment/Plan: Assessment: 50-year-old male with bicuspid aortic valve and coarctation of the aorta. He has had 2 surgeries at age 5 and 16, the 2nd surgery left him with a hemiparesis . He presented with cardiogenic shock, has left ventricular ejection fraction of 15% on pressors, is requiring Levophed, vasopressin and Federico -Synephrine maintain blood pressure In the 90s. [place] [address]. Velocities across aortic valve are 4.5 m/s. Cultures are pending. Plan: Extensive conversation with mother, father by phone and his brother. Father is a mat inspector, brother is a pug mill operator . Patient told the mother yesterday that while he would go through the planned right and left heart catheterization , he really did not want to do it, at this point mother states that the patient would want to be a DNR based on her prior conversations with him. Also family members are in agreement and I have given a verbal DNR order the nurse . At this time we will maintain supportive care unless the family decides otherwise. 05/08/16 09:06 Subjective: intubated, on pressors. Family at bedside. Reviewed/Discussed With: family, hospitalist Time Spent With Patient: 45 minutes Objective: Vital Signs (8 Hrs) Temp Pulse Resp BP Pulse Ox 05/08/16 08:58 38.9 C H 138 H 20 89/56 L 92 05/08/16 08:34 38.9 C H 137 H 20 93/56 L 96 05/08/16 08:00 38.9 C H 138 H 20 102/61 91 L 05/08/16 07:00 39.1 C H 130 H 28 H 106/66 92 05/08/16 06:30 131 H 28 H 101/64 90 L 05/08/16 06:00 112 H 24 H 74/46 L 92 05/08/16 05:30 119 H 24 H 79/43 L 90 L 05/08/16 05:00 149 H 24 H 107/51 L 89 L 05/08/16 04:45 38.7 C H 155 H 24 H 104/49 L 88 L 05/08/16 04:35 38.7 C H 156 H 23 H 120/64 85 L 05/08/16 04:20 37.2 C 145 H 20 98/69 L 86 L 05/08/16 03:00 134 H 27 H 85 L Intake/Output (24 Hrs) 05/06/16 05/07/16 05/08/16 11:59 11:59 11:59 Intake Total 4550.8 Output Total 2350 Balance 2200.8 Intake: IV Intake (ml) 40 IV Infused (ml) 4510.8 Clindamycin 600 mg/ 50 Dextrose 50 ml @ 100 mls/ hr IV EDNOW ONE Rx#: [id number] Norepinephrine Bitartrate 615 4 mg In D5w 500 ml @ Titrate IV CONT ATA Rx#: [id number] Phenylephrine HCl 50 mg 126 In D5w 250 ml @ Titrate IV CONT ATA Rx#: [id number] Propofol/Emulsion 100 ml 59 @ Per Protocol IV CONT ATA Rx#:[id number] Vasopressin/Dextrose 250 43.8 ml @ As Directed IV CONT ATA Rx#:[id number] cefTRIAXone 1 GM/DEXTROSE 50 50 ml @ 100 mls/hr IV EDNOW ONE Rx#:[id number] fentaNYL/NACL 100 ml @ 67 Per Protocol IV CONT ATA Rx#:[id number] Output: Urine (ml) 1700 Catheter 1000 Gastrointestinal Drainage 650 (ml) Other: Weight 100 kg Result Diagrams: 05/08/16 05:35 05/08/16 05:35 Cardiac Labs: Cardiac Lab Results (72 Hrs) 05/08/16 05:35 Troponin I 0.425 H ICD10 Worksheet Patient Problems: Problems Problem Status Onset Acute exacerbation of congestive heart failure Acute Aorta coarctation Acute Hypoxia Acute Pulmonary edema Acute Respiratory distress Acute Tachycardia Acute BRBPR (bright red blood per rectum) Acute
--- NOTE | 2016-05-08 09:14 | GPN ---
[f rep st] PROCEDURE NOTE PROCEDURE: Fiberoptic bronchoscopy. INDICATION: Mucus plugging. ANESTHESIA: The patient is currently sedated, paralyzed, and on mechanical ventilation. Procedure was performed in the intensive care unit with continuous pulse ox, EKG, and blood pressure monitoring. Please note N95 masks were used throughout the procedure. DESCRIPTION OF PROCEDURE: Bronchoscope was entered through a #7.5 endotracheal tube. Distal trache a and ted were visualized and showed copious amounts of pulmonary edema. They were therapeutical ly aspirated. Bronchoscope was entered in the left lung. Left upper lobe, lingula, left lower lobe including subsegments were visualized and showed no endobronchial lesions and normal-appearing muco sa, but again copious amounts of pulmonary edema. Bronchoscope was entered in the right lung. Righ t upper lobe, right middle lobe, right lower lobe including subsegments were again visualized and sh owed no endobronchial lesions, normal-appearing mucosa but extensive pulmonary edema. Bronchoalveol ar lavage taken in the right lower lobe. This was sent for C and S. /[id number]/MODL
[2016-05-08] MEDS ORDERED: PETROLAT,WHT/MIN OIL/SOD CHL 3.5 GM OPHT.OINT EACHEYE PRN (10:20)
[2016-05-08 13:18] VITALS: TEMP 101.3
[2016-05-08 13:28] VITALS: BP 0/0; PULSE 0; RESP 0; O2SAT 0
--- NOTE | 2016-05-08 15:08 | HOSPPROG ---
Hospitalist Progress Note Assessment/Plan: 50 yo M with complicated PMH that includes coarcted aorta s/p repair and then revision as well as bicupsid AV, thoracic aortic aneurysm, chronic systolic heart failure pw acute hypoxic respiratoary failure and cardiogenic shock # cardiogenic shock: repeat echo showing EF now decreased to 15%, being maintained on 3 pressors. consideration given for LVAD and appreciate CT surgery evaluation, but given goals of care, this is not being pursued currently. Continuing current tx for now, but without plans to escalate care. # acute hypoxic respiratory failure: intubated given significant hypoxia even on Objective: Vital Signs Temp Pulse Resp BP Pulse Ox 38.5 C H 0 L 0 L 0/0 L 0 L 05/08/16 13:17 05/08/16 13:22 05/08/16 13:22 05/08/16 13:22 05/08/16 13:22 Laboratory Results 05/08/16 05:35 05/08/16 05:35 05/07/16 05/08/16 05/09/16 05:59 05:59 05:59 Intake Total 4550.8 Output Total 2350 202 Balance 2200.8 -202 PT 16.8 SEC (12.0-15.0) H 05/08/16 06:41 INR 1.36 (0.83-1.16) H 05/08/16 06:41 ICD10 Worksheet Patient Problems: Problems Problem Status Onset BRBPR (bright red blood per rectum) Acute Acute exacerbation of congestive heart failure Acute Respiratory distress Acute Hypoxia Acute Tachycardia Acute Pulmonary edema Acute Aorta coarctation Acute
--- NOTE | 2016-05-08 15:15 | PDDCSUM ---
Discharge Summary Discharge Summary: Dates of service 05/08/16 Diagnosis at time of : # cardiogenic shock # acute hypoxic respiratory failure # aspiration pneumonia # likely septic shock # thoracic aortic aneurysm # VHD with /AR # acute on chronic systolic heart failure # anemia consultations: pulmonary, cardiology, CT surgery Procedures performed: echo, chest CTA, abd CT, ETT Hospital course by problem: 50 yo M with complicated PMH that includes coarcted aorta s/p repair and then revision as well as bicupsid AV, thoracic aortic aneurysm, chronic systolic heart failure pw acute hypoxic respiratoary failure and cardiogenic shock # cardiogenic shock: repeat echo showing EF now decreased to 15%, initially being maintained on 3 pressors. consideration given for LVAD and appreciate CT surgery evaluation, but given goals of care, plan transitioned to comfort only. # acute hypoxic respiratory failure: intubated given significant hypoxia even on high flow o2, given goals of care as above patient extubated and shortly thereafter # aspiration pna: with fluid filled esophagus noted on imaging and suspected gerd/aspiration--initially treated with abx but as above # conditions also present at time of : thoracic aortic aneurysm, hx of coarcted aorta s/p repair/revision, paraplegia, VHD Dispo: care withdrawn per family's request and patient shortly thereafter > 35 minutes spent in care of patient, more than half in coordination of care
== END 2016-05-08 16:53 | disposition expired | DRG 208 ==
LOC: F2N 05-08 04:17
PROVIDERS: ADMIT Internal Medicine; ATTEND Internal Medicine
PROC: 5A1935Z Respiratory Ventilation, Less than 24 Consecutive Hours (ICD-10-PCS; principal; 2016-05-08)
PROC: 0BH17EZ Insertion of Endotracheal Airway into Trachea, Via Natural or Artificial Opening (ICD-10-PCS; principal; 2016-05-08)
PROC: 02HV33Z Insertion of Infusion Device into Superior Vena Cava, Percutaneous Approach (ICD-10-PCS; principal; 2016-05-08)
PROC: 0B968ZX Drainage of Right Lower Lobe Bronchus, Via Natural or Artificial Opening Endoscopic, Diagnostic (ICD-10-PCS; 2016-05-08)
DX: J96.01 Acute respiratory failure with hypoxia (principal); J69.0 Pneumonitis due to inhalation of food and vomit; R57.0 Cardiogenic shock; I50.23 Acute on chronic systolic (congestive) heart failure; J81.0 Acute pulmonary edema; I71.2 Thoracic aortic aneurysm, without rupture; G82.20 Paraplegia, unspecified; Q23.1 Congenital insufficiency of aortic valve; Q25.1 Coarctation of aorta
CPT/HCPCS: J0330; J0456; J0696; J2060; J2370; J2405; J2704; J3010; J3370; Q9967